=== PATIENT | male | born 1965 | race Caucasian/White ===

== ENCOUNTER 2016-10-23 13:33 | Inpatient (IN) | payer SELFPAY ==
--- NOTE | 2016-10-23 13:34 | HP ---
HISTORY OF PRESENT ILLNESS: This 51 year-old white male is admitted to the hospital as a direct admission from Dr. Fernandez's clinic because of worsening shortness of breath. The patient has had increasing wheezing as well as fever and cough for the last 3 to 4 days. His sputum has been fairly clear. He was seen in the clinic earlier today and was given a Depo-Medrol shot, and was started on Levaquin. His condition failed to improve so the patient called back and was willing to be admitted to the hospital for more intensive treatment. Of concern is that he has been working with kitchen remodeling in a family's home and has been breathing some dust. Whether there was any insulation dust within it to be considered. Of note, is last May he had a handheld can spray of truck bed covering and while breathing it he inhaled some of it and became quite short of breath at that time. He had a chemical pneumonitis. In the clinic earlier today, he was noted to have a fever with elevated white count of 24,000. Chest x-ray showed some abnormalities within the lung with final report coming. He has had a history of a significant anemia in the past. He stopped smoking in May. The patient is admitted to the hospital for stabilization and specific treatment introduction in an effort to prevent this from worsening. PAST MEDICAL HISTORY: 1. Hypertension. 2. Hiatal hernia. 3. Chronic obstructive pulmonary disease. PAST SURGICAL HISTORY: 1. Fundoplication for hiatal hernia repair. CURRENT MEDICATIONS: Please refer to nurses' notes for a list of verified medications. ALLERGIES: PRIMARILY TO POLLEN AND A SEASONAL NATURE. 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 He stopped smoking about 5 months ago in May when he had the significant chemical pneumonitis. REVIEW OF SYSTEMS: Some weight change not really noted. Some fever and chills evident. HEENT: No hearing or vision disturbances. LUNGS: Increasing shortness of breath upon exertion, cough with some whitish sputum production. No blood in the sputum. CARDIOVASCULAR: No significant chest pains. No palpitations. ABDOMEN: No nausea, vomiting or diarrhea. No blood in the stools. GENITOURINARY: No dysuria. NEUROLOGIC: Somewhat weak with the associated shortness of breath. PHYSICAL EXAMINATION: VITAL SIGNS: Afebrile at this time, pulse 119, blood pressure 161/92, pulse oximetry 92% on room air, respirations 21. Weight is 86.2 kilos. GENERAL: The patient is awake, alert and oriented, and communicative. HEENT: Unremarkable. NECK: Supple. No adenopathy. CHEST: Lungs have some diminished breath sounds. Slightly improved breath sounds on the right mid lung field than the left. ABDOMEN: Soft with no organomegaly, masses or tenderness. NEUROLOGIC: No focal neurological deficits. LABORATORY: White count was performed in Dr. Fernandez's clinic and was elevated at 24,000. Hemoglobin is much improved compared to May, after May which he received some iron therapy for a significant iron deficiency state. Further other lab studies pending. ASSESSMENT: 1. Acute respiratory distress with possible underlying pneumonia process. Close followup necessary with treatment initiated. 2. History of chemical pneumonitis from 5 months ago. 3. Febrile illness. 4. Leukocytosis. 5. History of anemia with microcytic hypochromic picture suggesting iron deficiency state with low iron studies in May now with significantly improved blood count. 6. Hypertension. 7. History of hiatal hernia with associated gastroesophageal reflux disease. 8. History of low back pain with disc disease of the lumbar spine. 9. Chronic tobacco abuse now stopped. PLAN: The patient is admitted to the hospital for initiation of antibiotics parenterally. Close followup and observation is necessary. Low dose corticosteroids to be continued. Antibiotics such as Levaquin and Rocephin will also be continued pending results performed earlier. Repeat followup suggested with Dr. Fernandez. #[id number] [facility]
[2016-10-23] MEDS ORDERED: IPRATROPIUM/ALBUTEROL 3 ML VIAL NEB ONE (14:03)
[2016-10-23] MEDS ORDERED: HYDROcodone 5MG/APAP 325MG 1 EA TAB ONE (14:08)
[2016-10-23] MEDS: HYDROcodone 5MG/APAP 325MG 1 EA TAB PO PRN ×2 (14:09→19:45)
[2016-10-23] MEDS ORDERED: IPRATROPIUM/ALBUTEROL 3 ML VIAL NEB SCH (14:15)
[2016-10-23] MEDS ORDERED: MAGNESIUM HYDROXIDE 30 ML UD PO PRN (14:51)
[2016-10-23] MEDS ORDERED: ONDANSETRON INJ 4 MG/2 ML VIAL IV PRN (14:51)
[2016-10-23] MEDS ORDERED: SODIUM CHLORIDE 0.9% (FLUSH) 10 ML SYG IV PRN (14:51)
[2016-10-23] MEDS ORDERED: LEVALBUTEROL NEBS 1.25 MG/3 ML VIAL NEB PRN (14:51)
[2016-10-23] MEDS ORDERED: IBUPROFEN 400 MG TAB PO PRN (14:51)
[2016-10-23] MEDS ORDERED: IV SET AND CAP CHANGE INJ INJ SCH (15:00)
[2016-10-23] MEDS ORDERED: traMADol HCL 50 MG TAB PO PRN (15:11)
[2016-10-23] MEDS ORDERED: methylPREDNISolone SODIUM SUC 40 MG/ML VIAL IV ONE (15:20)
[2016-10-23] MEDS ORDERED: cefTRIAXone SODIUM 1 GM VIAL ONE ×2 (15:49→20:23)
[2016-10-23] MEDS ORDERED: SODIUM CHL 0.9% 50ML MIN-BAG+ 50 ML IVPB ONE ×2 (15:49→20:22)
[2016-10-23] MEDS: SODIUM CHLORIDE 0.9% 1000ML 1,000 ML IVS PRN (15:50)
[2016-10-23] MEDS: cefTRIAXone SODIUM 1 GM in SODIUM CHL 0.9% 50ML MIN-BAG+ 50 ML IVPB SCH (15:56)
[2016-10-23] MEDS: IPRATROPIUM/ALBUTEROL 3 ML VIAL NEB SCH ×2 (16:12→19:20)
[2016-10-23] MEDS: levoFLOXacin 750MG IV 750 MG in PREMIX BAG 1 BAG IVPB SCH (16:41)
[2016-10-23] MEDS ORDERED: OMEPRAZOLE CAP 20 MG CAP ONE (20:23)
[2016-10-23] MEDS ORDERED: AMITRIPTYLINE HCL 25 MG TAB PO SCH (21:00)
[2016-10-23] MEDS: FLUTICASONE/SALMETEROL 250/50 14 PUFF/17 GM INH INH SCH (23:31)
[2016-10-24] MEDS ORDERED: ALUM & MAG HYDROX-SIMETHICONE 30 ML UD PO ONE (01:29)
[2016-10-24] MEDS: cefTRIAXone SODIUM 1 GM in SODIUM CHL 0.9% 50ML MIN-BAG+ 50 ML IVPB SCH ×2 (03:20→14:39)
[2016-10-24] MEDS: SODIUM CHLORIDE 0.9% 1000ML 1,000 ML IVS PRN ×2 (06:14→23:20)
[2016-10-24] MEDS ORDERED: OMEPRAZOLE CAP 20 MG CAP PO SCH (06:30)
[2016-10-24] MEDS ORDERED: predniSONE 20 MG TAB ONE (06:58)
[2016-10-24] MEDS ORDERED: cefTRIAXone SODIUM 1 GM VIAL ONE ×2 (06:58→22:25)
[2016-10-24] MEDS ORDERED: VALSARTAN 80 MG TAB ONE (06:58)
[2016-10-24] MEDS ORDERED: SODIUM CHL 0.9% 50ML MIN-BAG+ 50 ML IVPB ONE ×2 (06:58→22:25)
[2016-10-24] MEDS: FLUTICASONE/SALMETEROL 250/50 14 PUFF/17 GM INH INH SCH ×2 (08:20→20:10)
[2016-10-24] MEDS: IPRATROPIUM/ALBUTEROL 3 ML VIAL NEB SCH ×4 (08:25→20:10)
[2016-10-24] MEDS: HYDROcodone 5MG/APAP 325MG 1 EA TAB PO PRN ×3 (08:57→21:49)
[2016-10-24] MEDS: VALSARTAN 80 MG TAB PO SCH (08:58)
[2016-10-24] MEDS ORDERED: NON-FORMULARY MEDICATION 1 EA MIS (Dexlansoprazole [Dexilant] 60 MG) PO SCH (09:00)
[2016-10-24] MEDS ORDERED: predniSONE 20 MG TAB PO SCH (09:00)
[2016-10-24] MEDS ORDERED: NON-FORMULARY MEDICATION 1 EA MIS (Mirabegron [Myrbetriq] 25 MG) PO SCH (09:00)
--- NOTE | 2016-10-24 11:08 | RAD ---
EXAM DESCRIPTION: Chest,2 Views CLINICAL HISTORY: 51 yearsMale, Pneumonia COMPARISON: June 05, 2016. IMPRESSION: Interval development of infiltrates within the lateral right midlung and left lung base. The remaining lung is clear. No pleural effusion or pneumothorax. Heart size is unremarkable. The findings can be seen in setting of pneumonia. Recommend repeat radiograph in six weeks to document resolution of the bilateral bronchopneumonia. Electronically signed by: Howard Neely MD 10/24/2016 11:07 AM [employer] MARKET[employer]IST
[2016-10-24] MEDS ORDERED: GLUCAGON INJ 1 MG VIAL SUBCU PRN (11:15)
[2016-10-24] MEDS ORDERED: DEXTROSE 50% 25 GM/50 ML SYG IV PRN (11:15)
[2016-10-24] MEDS ORDERED: POTASSIUM CHLORIDE 20 MEQ TAB PO ONE (11:15)
[2016-10-24] MEDS ORDERED: methylPREDNISolone SODIUM SUC 125 MG/2 ML VIAL IV ONE (11:30)
[2016-10-24] MEDS: guaiFENesin ER TAB 600 MG TAB PO SCH ×2 (12:15→21:30)
[2016-10-24] MEDS: INSULIN LISPRO 100 UNITS/ML PEN SUBCU SCH ×3 (12:38→21:45)
--- NOTE | 2016-10-24 12:54 | CT ---
EXAM DESCRIPTION: Chest w/Contrast CLINICAL HISTORY: Ground glass opacities, shortness of breath COMPARISON: June 05, 2016 TECHNIQUE: Post IV contrasted multidetector CT imaging of the chest. Multiplanar reconstructions were provided. FINDINGS: There is significant worsening of the groundglass opacities within bilateral lungs. There is relative sparing of the periphery of the lungs. Groundglass nodules are the predominant feature on today's exam. No evidence of honeycombing, emphysema, bronchiectasis or interlobular septal thickening. No pleural disease. Lines as hiatal hernia. No axillary or supraclavicular lymphadenopathy. There are a few bilateral hilar lymph nodes. Diffuse small mediastinal lymph nodes. Heart size is normal. No pericardial disease. The upper abdomen demonstrates a 3 mm nonobstructing right midsegment stone. There is a 2 mm left midsegment renal stone. IMPRESSION: Today's exam demonstrates considerable worsening of the bilateral and symmetrical groundglass opacities no additional lung abnormality is noted on today's exam. Given the fact that these are chronic groundglass opacities the differential could include's subacute hypersensitivity pneumonitis, organizing pneumonia and chronic eosinophilic pneumonia. It would be very rare to have bilateral bronchoalveolar carcinoma given its widespread presentation. Electronically signed by: Howard Neely MD 10/24/2016 12:53 PM [employer]
[2016-10-24] MEDS: levoFLOXacin 750MG IV 750 MG in PREMIX BAG 1 BAG IVPB SCH (15:41)
[2016-10-24] MEDS ORDERED: methylPREDNISolone SODIUM SUC 125 MG/2 ML VIAL ONE (16:30)
[2016-10-24] MEDS: methylPREDNISolone SODIUM SUC 125 MG/2 ML VIAL IV SCH ×2 (17:58→23:58)
--- NOTE | 2016-10-24 18:38 | PN ---
SUPERVISING PHYSICIAN: Rambo Quintanilla M.D. DATE: 10/24/16 SUBJECTIVE: The patient is sitting up in his chair in his room. He complains of shortness of breath and coughing with some wheezing, although he states he feels better than he did yesterday. He has no complaints of chest pain, nausea or vomiting. We discussed at length his hospital stay and that he would probably be in here for several days. Most of his problems probably result from his chemical pneumonitis that he had back in May of 2016. OBJECTIVE: VITAL SIGNS: He is afebrile, heart rate 98, blood pressure 135/70, respiratory rate 22, O2 sat has been 88% but usually runs around 92 to 95% on 2 liters nasal cannula. RESPIRATORY: Expiratory wheezing throughout with coarse rhonchi. Somewhat diminished at the bases. He is slightly tachypneic at times. CARDIAC: Regular rate and rhythm. ABDOMEN: Soft, nondistended, non- tender. Bowel sounds are positive. EXTREMITIES: No cyanosis, clubbing or edema. NEUROLOGIC: Awake, alert and oriented times three. LABORATORY: WBCs have improved from 24,000 yesterday to 16.1 today, hemoglobin 10/7, hematocrit 33.8. Potassium 3.5. Blood sugar 187. Chest x-ray shows interval development of infiltrates within the lateral right mid lung and left lung base. The remaining lung is clear. Chest CT says today's exam demonstrates considerable worsening of the bilateral symmetrical ground glass opacities. No additional lung abnormality is noted on today's exam. Given the fact that these are chronic ground glass opacities, the differential could include subacute hypersensitivity pneumonitis organizing pneumonia and chronic eosinophilic pneumonia. It would be very rare to have bilateral bronchoalveolar carcinoma given its wide spread presentation. All other labs and films have been reviewed via the EMR. ASSESSMENT: 1. Acute respiratory distress with underlying pneumonia process most likely residual effect of his chemical pneumonitis from May of 2016. 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 2. History of chemical pneumonitis from 5 months ago. 3. Febrile illness, presently has been afebrile for 24 hours. 4. Leukocytosis of 24,000 that has now improved to 16,000. 5. History of anemia with microcytic hypochromic picture suggesting iron deficiency state with low iron studies in May now with significantly improved blood count. 6. Hypertension. 7. History of hiatal hernia. 8. History of low back pain. 9. Chronic tobacco abuse that has now stopped. PLAN: I spoke with the radiologist about the chest CT and he agreed that his CT scan is most likely sales training representative of chemical pneumonitis that is ongoing from May of 2016 or it could be an eosinophilic pneumonia. It would warrant close pulmonary followup as well as a biopsy at some point in the near future. He will need IV steroids for this condition. We will continue on his Levaquin for now, especially given his leukocytosis. I will give him some Mucinex as well as given him an initial dose of Solu-Medrol plus some Solu- Medrol every 6 hours. Will do basic lab and x-ray in the morning. I have also given him an extra potassium this evening, put him on sliding scale insulin with a.c. and h.s. Accu Cheks to cover for his steroid use. I have also ordered bronchial hygiene and have encouraged good pulmonary toilet, including incentive spirometry. 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 Dr. Quintanilla is the collaborating physician available for consultation. [facility][id number] [facility]
[2016-10-24] MEDS ORDERED: AMITRIPTYLINE HCL 25 MG TAB ONE (19:53)
[2016-10-24] MEDS ORDERED: OMEPRAZOLE CAP 20 MG CAP ONE (19:54)
[2016-10-24] MEDS: AMITRIPTYLINE HCL 25 MG TAB PO SCH (21:30)
[2016-10-24] MEDS: OMEPRAZOLE CAP 20 MG CAP PO SCH (21:30)
[2016-10-24] MEDS: TEMAZEPAM 15 MG CAP PO PRN (22:31)
[2016-10-25] MEDS: TEMAZEPAM 15 MG CAP PO PRN ×2 (01:12→22:08)
[2016-10-25] MEDS: cefTRIAXone SODIUM 1 GM in SODIUM CHL 0.9% 50ML MIN-BAG+ 50 ML IVPB SCH ×2 (02:57→16:35)
[2016-10-25] MEDS: methylPREDNISolone SODIUM SUC 125 MG/2 ML VIAL IV SCH ×2 (06:06→12:12)
[2016-10-25] MEDS: FLUTICASONE/SALMETEROL 250/50 14 PUFF/17 GM INH INH SCH ×2 (08:44→20:31)
[2016-10-25] MEDS: IPRATROPIUM/ALBUTEROL 3 ML VIAL NEB SCH ×4 (08:44→20:31)
[2016-10-25] MEDS: INSULIN LISPRO 100 UNITS/ML PEN SUBCU SCH ×4 (10:10→21:40)
[2016-10-25] MEDS: VALSARTAN 80 MG TAB PO SCH (10:14)
[2016-10-25] MEDS: guaiFENesin ER TAB 600 MG TAB PO SCH ×2 (10:14→21:10)
[2016-10-25] MEDS: HYDROcodone 5MG/APAP 325MG 1 EA TAB PO PRN ×3 (11:20→22:11)
[2016-10-25] MEDS ORDERED: predniSONE 20 MG TAB PO ONE (12:39)
--- NOTE | 2016-10-25 13:11 | PN ---
SUPERVISING PHYSICIAN: Rambo Quintanilla MD DATE: 10/25/16 SUBJECTIVE: The patient is sitting up in the chair eating his lunch. He does not have his oxygen on and he denies any shortness of breath, chest pain, nausea , vomiting, or diarrhea. He states he feels much better than he did on date of admission. OBJECTIVE: VITAL SIGNS: Temperature 99.1. Pulse 102. Blood pressure 159/87. Respiratory rate 20. O2 saturation 90% to 91% on room air, 95% on 2 liters nasal cannula. LUNGS: Some scattered expiratory wheezing, but much improved since yesterday. CARDIAC: Regular rate and rhythm. ABDOMEN: Soft, nontender, nondistended. Bowel sounds are positive. NEUROLOGIC: Awake, alert and oriented times three. LABORATORY: WBCs have gone up from 16.1 to 20.8. Metabolic panel is basically within normal limits with the exception of his blood sugars between 137 and 161. Sputum shows a normal michael at 24 hours. All other labs and films have been reviewed via the EMR. ASSESSMENT: 1. Acute respiratory distress with underlying pneumonia process, most likely residual effect of his chemical pneumonitis from May of 2016. 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 2. History of chemical pneumonitis from about 5 months ago. 3. Febrile illness, presently has been afebrile for the last 48 hours. 4. Leukocytosis, originally at 24,000, decreased to 16,000 and now back up to 21,000, most likely due to his high dosing of corticosteroids. 5. History of anemia with microcytic/hypochromic picture suggesting iron deficiency state with low iron studies in May, now with significantly improved blood count. 6. Hypertension. 7. History of hiatal hernia. 8. History of low back pain. 9. Chronic tobacco abuse, now stopped. PLAN: The patient is really wanting to go home, so at this point I will switch him from IV steroid to oral steroids. We will get an ambulation study and we will monitor his oxygenation. He does have oxygen at home. If his oxygenation remains adequate, we will discharge him home on some steroids. He will have close followup with Dr. Fernandez, his primary care physician, and will need close followup with a pulmonary doctor at some point. This will be a very slow process in healing and we will need to be more diligent in his post discharge care. I have encouraged good pulmonary toilet and encouraged him to walk frequently in the hallways. I will repeat his lab in the morning. We will continue present supportive care and followup as needed. Dr. Quintanilla is the collaborating physician and available for consultation. #[id number] [facility]
[2016-10-25] MEDS ORDERED: predniSONE 20 MG TAB ONE (15:07)
[2016-10-25] MEDS ORDERED: levoFLOXacin 500 MG TAB ONE (15:09)
[2016-10-25] MEDS ORDERED: levoFLOXacin 500 MG TAB PO SCH (16:30)
[2016-10-25] MEDS: levoFLOXacin 750MG IV 750 MG in PREMIX BAG 1 BAG IVPB SCH (16:36)
[2016-10-25] MEDS: OMEPRAZOLE CAP 20 MG CAP PO SCH (21:09)
[2016-10-25] MEDS: AMITRIPTYLINE HCL 25 MG TAB PO SCH (21:10)
[2016-10-26 00:27] VITALS: TEMP 98.7
[2016-10-26] MEDS ORDERED: predniSONE 20 MG TAB ONE (07:39)
[2016-10-26] MEDS: INSULIN LISPRO 100 UNITS/ML PEN SUBCU SCH (08:43)
[2016-10-26] MEDS ORDERED: predniSONE 20 MG TAB PO SCH (09:00)
[2016-10-26] MEDS: VALSARTAN 80 MG TAB PO SCH (09:09)
[2016-10-26] MEDS: guaiFENesin ER TAB 600 MG TAB PO SCH (09:11)
[2016-10-26] MEDS: FLUTICASONE/SALMETEROL 250/50 14 PUFF/17 GM INH INH SCH (09:17)
[2016-10-26] MEDS: IPRATROPIUM/ALBUTEROL 3 ML VIAL NEB SCH (09:17)
[2016-10-26] MEDS ORDERED: levoFLOXacin 500 MG TAB PO ONE (10:51)
[2016-10-26] MEDS: HYDROcodone 5MG/APAP 325MG 1 EA TAB PO PRN (10:53)
[2016-10-26 11:00] VITALS: BP 158/79; O2SAT 94
--- NOTE | 2016-10-26 14:38 | DS ---
SUPERVISING PHYSICIAN: Rambo Quintanilla M.D. DISCHARGE DIAGNOSIS: 1. Acute respiratory distress with underlying pneumonia process, most likely residual effect of his chemical pneumonitis from May of 2016. 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 2. History of chemical pneumonitis from about 5 months ago. 3. Febrile illness, presently has been afebrile for the last 48 hours. 4. Leukocytosis that has improved to 18.6 on steroid therapy. 5. History of anemia with microcytic/hypochromic picture suggesting iron deficiency state with low iron studies in May, now with significantly improved blood count. 6. Hypertension. 7. History of hiatal hernia. 8. History of low back pain. 9. Chronic tobacco abuse, now stopped. HISTORY OF PRESENT ILLNESS: This is a 51 year-old male patient who was admitted from Dr. Fernandez's office because of worsening shortness of breath. He had increased wheezing as well as fever and cough for 3 to 4 days prior to admission. He was given a Depo-Medrol shot and Levaquin at his physician's office, but he continued to worsen to the point that he called back and was willing to be admitted to the hospital for more intensive treatment. Of note, last May he had been using spray truck bed liner covering and he inhaled it at that time, and was concerns for chemical pneumonitis. He had been remodeling some things at his home and he had been breathing in some dust which may have exacerbated the problem. In the clinic he was noted to have a fever with an elevated white count of 24,000. His chest x-ray showed some abnormalities with the lung. He has a history of significant anemia in the past. He stopped smoking in May and the patient was admitted to the hospital. HOSPITAL COURSE: The patient slowly improved with the addition of IV steroids as well as continuing his Levaquin antibiotic treatment. He was given breathing treatments and a CAT scan was done that showed chronic ground glass opacities in the considerably worsening lung scan. The differentials could include subacute hypersensitivity pneumonitis, organizing pneumonia and/or chronic eosinophilic pneumonia. The findings are consistent with his previous diagnosis of chemical pneumonitis. He received steroids and good pulmonary hygiene. He was converted to oral prednisone yesterday. He still gets short of breath at times with exertion, but he has improved to the point that I believe that he can be discharged home with close followup. DISCHARGE PLAN: The patient will be discharged home in stable condition. He is to resume his previous diet as well as his previous medications. I sent him home on 7 days of Levaquin as well as a prednisone taper. I will continue him on 10 mg of prednisone until we can get him in to see a clinical assessment manager. He will followup with me on November 04 and we will get his referral to Pulmonology at that time. He is to increase his activity as tolerated. He is to return to the hospital or followup at the clinic with any further complications or problems. DISCHARGE MEDICATIONS: 1. Tramadol. 2. Advair. 3. Myrbetriq. 4. Dexalant. 5. Amitriptyline. 6. Proventil nebulizers. 7. Valsartan. 8. Albuterol inhaler. 9. Guaifenesin. 10. Levaquin. 11. Prednisone taper. Dr. Quintanilla is the collaborating physician available for consultation. #[id number] [facility]
== END 2016-10-26 12:04 | disposition home or self-care (01) | DRG 197 ==
LOC: MS 13:33
PROVIDERS: ADMIT Family Medicine; ATTEND Nurse Practitioner Acute Care
PROC: BB24YZZ Computerized Tomography (CT Scan) of Bilateral Lungs using Other Contrast (ICD-10-PCS; principal; 2016-10-24)
DX: J82 Pulmonary eosinophilia, not elsewhere classified (principal); J67.9 Hypersensitivity pneumonitis due to unspecified organic dust; D50.9 Iron deficiency anemia, unspecified; I10 Essential (primary) hypertension; M54.5 Low back pain; K44.9 Diaphragmatic hernia without obstruction or gangrene; K21.9 Gastro-esophageal reflux disease without esophagitis; Z87.891 Personal history of nicotine dependence; Z87.09 Personal history of other diseases of the respiratory system

== ENCOUNTER 2017-02-04 12:32 | Emergency (ER) | payer SELFPAY ==
--- NOTE | 2017-02-04 13:02 | ED.PDOC ---
History of Present Illness - General Chief Complaint: General Stated Complaint: anemia on lab work today Time Seen by Provider: 02/04/17 12:49 Source: patient Exam Limitations: no limitations - History of Present Illness Initial Comments: Patient presents from clinic after the providers there noticed that he had a substantially reduced hemoglobin since 3 months ago. He has had dysnpea since tracy chemical pneumonitis last fall. He was on high dose steroids but those have since been stopped. He says that he has had increasing dyspnea since stopping the steroids. He says that he has a history of GERD and yesterday coughed up some black sputum. He also says that his stool is darker but denies black or damon blood. He thinks he may have had a fever yesterday. No other complaints. Timing/Duration: unsure Severity: moderate Improving Factors: nothing Worsening Factors: nothing Associated Symptoms: shortness of breath Allergies/Adverse Reactions: Allergies NO KNOWN ALLERGY Allergy (Verified 06/01/16 17:10) Home Medications: Ambulatory Orders Fluticasone/Salmeterol 250/50 [Advair 250/50 Diskus] 1 puff INH RTBID 06/01/16 Valsartan 40 mg PO DAILY 10/23/16 Albuterol Sulfate 0.083 % NEB Q4HWA PRN 02/04/17 Amlodipine Besylate [Norvasc] 2.5 mg PO 02/04/17 Fluticasone/Salmeterol 250/50 [Advair 250/50 Diskus] 02/04/17 Trazodone HCl 50 mg PO 02/04/17 Review of Systems - Review of Systems Constitutional: States: no symptoms reported EENTM: States: no symptoms reported Respiratory: States: see HPI Cardiology: States: no symptoms reported Gastrointestinal/Abdominal: States: see HPI Genitourinary: States: no symptoms reported Musculoskeletal: States: no symptoms reported Skin: States: no symptoms reported Neurological: States: no symptoms reported Endocrine: States: no symptoms reported Hematologic/Lymphatic: States: no symptoms reported Past Medical History (General) - Patient Medical History Hx Seizures: No Hx Stroke: No Hx Dementia: No Hx Asthma: Yes Hx of COPD: Yes Hx Cardiac Disorders: Yes Hx Congestive Heart Failure: No Hx Pacemaker: No Hx Hypertension: Yes Hx Thyroid Disease: No Hx Diabetes: No Hx Gastroesophageal Reflux: No Hx Renal Disease: No Hx Cancer: No Hx of HIV: No Hx Hepatitis C: No Hx MRSA: No Surgical History: no surgical history - Vaccination History Hx Tetanus, Diphtheria Vaccination: Yes Hx Influenza Vaccination: Yes Hx Pneumococcal Vaccination: Yes Immunizations Up to Date: Yes - Social History Hx Tobacco Use: No Hx Chewing Tobacco Use: No Hx Alcohol Use: No Hx Substance Use: No Hx Substance Use Treatment: No Hx Depression: No Feels Threatened In Home Enviroment: No Feels Threatened In a Relationship: No Hx Physical Abuse: No Hx Emotional Abuse: No Hx Suspected Abuse: No - Female History Patient is a Female of Child Bearing Age (10 -59 yrs old): No Patient : No Family Medical History - Family History Father Family History: Unknown Living Status: Physical Exam - Physical Exam General Appearance: Alert Eye Exam: bilateral normal Ears, Nose, Throat: normal ENT inspection Neck: non-tender, full range of motion, supple Respiratory: lungs clear Cardiovascular/Chest: normal peripheral pulses, regular rate, rhythm Gastrointestinal/Abdominal: normal bowel sounds, non tender, soft Back Exam: no CVA tenderness Extremity: normal inspection Skin Exam: normal color Progress - Progress Progress: 02/04/17 14:13 FOBT positive Hb 7.8 Protonix 80 mg IV x one given since hx suggests this is upper GI. No octreostide started since by hx this appears to be chronic. Accepted at [facility] for inpatient evaluation. 02/04/17 13:06 URINALYSIS Stat Laboratory Results - last 24 hr 02/04/17 02/04/17 02/04/17 13:05 13:05 13:53 WBC 9.4 RBC 3.52 L Hgb 7.8 L* Hct 25.2 L MCV 71.4 L MCH 22.1 L MCHC 31.0 L RDW 16.2 H Plt Count 313 MPV 7.0 L Absolute Neuts (auto) 6.30 Absolute Lymphs (auto) 1.60 Absolute Monos (auto) 0.80 Absolute Eos (auto) 0.60 H Absolute Basos (auto) 0.00 Neutrophils % 67.2 Lymphocytes % 17.6 L Monocytes % 9.0 Eosinophils % 6.0 H Basophils % 0.2 Sodium 138 Potassium 4.1 Chloride 100 L Carbon Dioxide 30 Anion Gap 12.1 BUN 17 Creatinine 1.40 H BUN/Creatinine Ratio 12.1 Random Glucose 104 Serum Osmolality 277.5 Calcium 9.0 Total Bilirubin 0.6 AST 22 ALT 21 Alkaline Phosphatase 42 Serum Total Protein 6.7 Albumin 3.2 Globulin 3.5 Albumin/Globulin Ratio 0.9 L Stool Occult Blood Positive Departure - Departure Clinical Impression: Anemia, Hematochezia Disposition: Transfer to Hospital Condition: Good Departure Forms: ED Discharge - Pt. Copy, Patient Portal Self Enrollment Diet: other - as per hospitalist Activity: other - as per hospitalist Referrals: SETH BLACKWELL [Primary Care Provider] - 1-2 Weeks Home Medications: Ambulatory Orders Fluticasone/Salmeterol 250/50 [Advair 250/50 Diskus] 1 puff INH RTBID 06/01/16 Valsartan 40 mg PO DAILY 10/23/16 Albuterol Sulfate 0.083 % NEB Q4HWA PRN 02/04/17 Amlodipine Besylate [Norvasc] 2.5 mg PO 02/04/17 Fluticasone/Salmeterol 250/50 [Advair 250/50 Diskus] 02/04/17 Trazodone HCl 50 mg PO 02/04/17
[2017-02-04] MEDS ORDERED: SODIUM CHLORIDE 0.9% 50ML 50 ML ONE (14:21)
[2017-02-04] MEDS: PANTOPRAZOLE SODIUM IV 40 MG VIAL IV ONE (14:21)
[2017-02-04 14:37] VITALS: BP 143/72; TEMP 98; O2SAT 98
== END 2017-02-04 15:08 | disposition short-term general hospital (02) ==
LOC: ER 12:32
DX: K92.1 Melena (principal); D64.9 Anemia, unspecified; I10 Essential (primary) hypertension; Z79.899 Other long term (current) drug therapy
CPT/HCPCS: 36415; 80053; 81001; 82270; 85025; A4216

== ENCOUNTER → 2017-02-19 | Outpatient (CLI) | payer SELFPAY | END | disposition home or self-care (01) | LOC: GMA 11:54 | PROVIDERS: ATTEND Nurse Practitioner Acute Care | DX: D64.9 Anemia, unspecified (principal) ==

== ENCOUNTER → 2017-03-03 | Outpatient (CLI) | payer SELFPAY | LOC: LAB 15:38 | PROVIDERS: ATTEND Nurse Practitioner Acute Care | DX: D64.9 Anemia, unspecified (principal) ==

== ENCOUNTER 2017-03-04 09:48 | Emergency (ER) | payer SELFPAY ==
[2017-03-04 10:05] VITALS: TEMP 97.3
--- NOTE | 2017-03-04 10:56 | ED.PDOC ---
History of Present Illness - General Chief Complaint: Fever Stated Complaint: abnormal lab, fever Time Seen by Provider: 03/04/17 10:27 Source: patient Exam Limitations: no limitations Additional Information: PT WAS TOLD HIS LABS YESTERDAY FROM PCP SHOWED WBC 20 AND THUS WAS TOLD TO COME TO ER. PT C/O FATIGUE, VOMITING X 2 STARTING YESTERDAY. HE STATES HE HAS NOT FELT WELL SINCE MAY (10 MOS) AND THEY HAVEN'T FOUND THE CAUSE YET. HE STATES HE HAD A BLOOD TRANSFUSION AND A RECENT EGD TO LOOK FOR BLOOD LOSS. - History of Present Illness Improving Factors: nothing Worsening Factors: nothing Allergies/Adverse Reactions: Allergies NO KNOWN ALLERGY Allergy (Verified 03/04/17 10:05) Home Medications: Ambulatory Orders Fluticasone/Salmeterol 250/50 [Advair 250/50 Diskus] 1 puff INH RTBID 06/01/16 Valsartan 40 mg PO DAILY 10/23/16 Albuterol Sulfate 0.083 % NEB Q4HWA PRN 02/04/17 Trazodone HCl 50 mg PO BEDTIME 02/04/17 Review of Systems - Review of Systems Constitutional: States: fever, malaise, weakness EENTM: States: no symptoms reported Respiratory: Denies: cough, short of breath Cardiology: States: no symptoms reported Gastrointestinal/Abdominal: States: nausea, vomiting. Denies: abdominal pain Genitourinary: States: no symptoms reported Musculoskeletal: States: no symptoms reported Skin: States: no symptoms reported Neurological: States: no symptoms reported Endocrine: States: no symptoms reported Hematologic/Lymphatic: States: no symptoms reported All other Systems: Reviewed and Negative Past Medical History (General) - Patient Medical History Hx Seizures: No Hx Stroke: No Hx Dementia: No Hx Asthma: Yes Hx of COPD: Yes Hx Cardiac Disorders: Yes Hx Congestive Heart Failure: No Hx Pacemaker: No Hx Hypertension: Yes Hx Thyroid Disease: No Hx Diabetes: No Hx Gastroesophageal Reflux: No Hx Renal Disease: No Hx Cancer: No Hx of HIV: No Hx Hepatitis C: No Hx MRSA: No Surgical History: no surgical history - Vaccination History Hx Tetanus, Diphtheria Vaccination: Yes Hx Influenza Vaccination: Yes Hx Pneumococcal Vaccination: Yes - Social History Hx Tobacco Use: No Hx Chewing Tobacco Use: No Hx Alcohol Use: No Hx Substance Use: No Hx Substance Use Treatment: No Hx Depression: No Hx Physical Abuse: No Hx Emotional Abuse: No Hx Suspected Abuse: No - Activities of Daily Living Hospice Agency (if applicable):: None - Female History Patient is a Female of Child Bearing Age (10 -59 yrs old): No Patient : No Family Medical History - Family History Father Family History: Unknown Living Status: Mother Living Status: Physical Exam - Physical Exam General Appearance: Alert, Well Nourished Eye Exam: bilateral normal Ears, Nose, Throat: hearing grossly normal, normal ENT inspection, normal pharynx Neck: non-tender, full range of motion, supple Respiratory: chest non-tender, lungs clear, normal breath sounds, no respiratory distress Cardiovascular/Chest: normal peripheral pulses, regular rate, rhythm Peripheral Pulses: radial,right: 2+, radial,left: 2+ Gastrointestinal/Abdominal: normal bowel sounds, non tender, soft Back Exam: normal inspection, no CVA tenderness Extremity: normal range of motion, non-tender, normal inspection 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 03/04/17 14:12 1. ANEMIA, MICROCYTIC, HYPOCHROMIC - HGB 9.7, UP FROM 7.8 IN JANUARY. I ORDERED IRON STUDIES. PT STATES HE ALREADY TAKES DAILY IRON SUPPLEMENTATION. 2. FATIGUE - D/T ANEMIA. 3. NEUROPHILIC LEUKOCYTOSIS (WBC 16, DOWN FROM 20 RECENTLY) - ETX UNCLEAR. PT HAD BEEN ON STEROIDS BUT NOW HAS BEEN OFF FOR MORE THAN 2 WEEKS. AF, VSS, NO PAIN ANYWHERE. NO INFECTIOUS SOURCE PER SX OR PER W/U. HAD CHEMICAL PNEUMONITIS MONTHS AGO WHICH IS STABLE AND PT DENIES ANY NEW C/O SUCH COUGH. BCX PENDING. 4. HYPOKALEMIA - MILD. GAVE KDUR PO. 5. MICROCOPIC HEMATURIA - UA SMALL BLOOD. NO SX. INSTRUCTED PT TO F/U W/ PCP IN 1 MO TO RECHECK AND ENSURE UA BLOOD ABSENT. I SPOKE WITH PT'S PCP, NANCY. SHE TALKED WITH HER SUPERVISING PHYSICIAN AND WE CONCURRED ADMISSION IS NOT WARRANTED SINCE THIS THESE ARE CHRONIC ISSUES TO SORT OUT AND HE IS STABLE AND NOT NEEDING IN-PT CARE. 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 SHE PLANS TO THEN REFER HIM TO HEME/ONC FOR THE PERSISTENT ANEMIA AND LEUKOCYTOSIS. Departure - Departure Clinical Impression: Hypochromic microcytic anemia, Neutrophilic leukocytosis, Microscopic hematuria , Fatigue, Hypokalemia Disposition: Discharge to Home or Self Care Condition: Fair Departure Forms: ED Discharge - Pt. Copy, Patient Portal Self Enrollment Instructions: Anemia: How Food and Vitamins Can Help Diet: resume usual diet Activity: increase activity as tolerated Referrals: SETH BLACKWELL [Primary Care Provider] - 1-2 Weeks Home Medications: Ambulatory Orders Fluticasone/Salmeterol 250/50 [Advair 250/50 Diskus] 1 puff INH RTBID 06/01/16 Valsartan 40 mg PO DAILY 10/23/16 Albuterol Sulfate 0.083 % NEB Q4HWA PRN 02/04/17 Trazodone HCl 50 mg PO BEDTIME 02/04/17 Additional Instructions: Please stop by Nancy's office this Friday to machine operator picker an order to repeat labs. She is going to recheck your iron and white blood cells to see if they are improving or not. She will follow-up on the iron tests and blood cultures from today that are not back yet. Please eat 1 banana per day to keep your potassium in the normal range. Please continue taking your daily iron tablet. Please see Nancy in 1 month as discussed to repeat a urine test to ensure the blood in the urine goes away.
[2017-03-04] MEDS ORDERED: POTASSIUM CHLORIDE 20 MEQ TAB PO ONE (13:44)
[2017-03-04 14:39] VITALS: BP 148/85; O2SAT 94
== END 2017-03-04 14:37 | disposition home or self-care (01) ==
LOC: ER 09:48
DX: D72.828 Other elevated white blood cell count (principal); D50.9 Iron deficiency anemia, unspecified; R31.29 Other microscopic hematuria; R53.83 Other fatigue; E87.6 Hypokalemia; J44.9 Chronic obstructive pulmonary disease, unspecified; I10 Essential (primary) hypertension; Z79.899 Other long term (current) drug therapy